=== PATIENT | female | born 1995 | race African-American/Black ===

== ENCOUNTER 2020-07-06 14:13 | Emergency (ER) | payer SELFPAY ==
[~2020-07-06] VITALS: Ht 162.6 cm; Wt 49.9 kg
[~2020-07-06 14:13] MED LIST: CEPH250C PO; PREN-96 PO
[2020-07-06 14:29] VITALS: BP 112/72
[2020-07-06] MEDS ORDERED: BENZOCAINE (DENTAL) 20 % SPRAY 60ML MT ONE (16:00)
== END 2020-07-06 16:35 | disposition home or self-care (01) ==
LOC: ER 14:13
DX: K04.7 Periapical abscess without sinus (principal)

== ENCOUNTER 2023-12-30 20:19 | Emergency (ER) | payer MEDICAID ==
[~2023-12-30] VITALS: Ht 170.2 cm; Wt 54.5 kg
[2023-12-30 21:34] LABS: Urine Bacteria FEW /hpf (None Seen); Urine Blood Negative /uL (Negative); Urine Clarity Clear (Clear); Urine Color Colorless (Yellow); Urine Mucus FEW (None Seen); Urine Protein, UAD Negative (Negative); Urine Specific Gravity 1.013 (1.001-1.035); Urine Urobilinogen Normal (Negative); Urine WBC 3 /hpf (0 - 5)
[2023-12-30] MEDS ORDERED: ZOFR4T PO (21:48)
[2023-12-30] MEDS: ONDANSETRON ODT 4 MG TAB PO ONE (22:17)
[2023-12-30 22:18] VITALS: BP 122/77; PULSE 86; RESP 19; TEMP 98.1; O2SAT 99
[2023-12-30] MEDS: ACETAMINOPHEN 325 MG TAB PO ONE (22:18)
== END 2023-12-30 22:20 | disposition home or self-care (01) ==
LOC: ER 20:19
DX: O21.8 Other vomiting complicating pregnancy (principal); Z79.899 Other long term (current) drug therapy; Z3A.12 12 weeks gestation of pregnancy
CPT/HCPCS: 81001; 99283; Q0162